=== PATIENT | female | born 1960 | race Caucasian/White ===

== ENCOUNTER → 2025-01-16 07:05 | Outpatient (CLI) | payer OTHER, SELFPAY ==
[2025-01-16 08:22] LABS: Add Manual Diff / Slide Review NO; Basophils Absolute Auto 0 /uL (0-100); Basophils Percent Auto 0.6 % (0-2); Eosinophils Absolute Auto 200 /uL (0-450); Eosinophils Percent Auto 4.1 % (2-4); Hematocrit 45.9 % (36-46); Hemoglobin 15.4 g/dL (12.0-16.0); Lymphocytes Absolute Auto 1800 /uL (1100-4500); Lymphocytes Percent Auto 32.9 % (25-40); Mean Corpuscular HGB Conc 33.5 % (30-36); Mean Corpuscular Hemoglobin 31.2 PG (26-34); Monocytes Absolute Auto 400 /uL (0-900); Monocytes Percent Auto 6.8 % (3-14); Neutrophils Absolute Auto 3100 /uL (1500-7000); Neutrophils Percent Auto 55.6 % (50-75); Platelet Count 289 X10^3/uL (150-400); Red Blood Cell Count 4.93 X10^6/uL (4.0-5.2); Red Cell Distribution Width 13.7 % (11.6-14.8); White Blood Cell Count 5.6 X10^3/uL (4.5-11.0)
[2025-01-16 08:43] LABS: Alanine Aminotransferase 25 IU/L (<35); Albumin 4.8 g/dL (3.5-5.0); Albumin Globulin Ratio 1.6 (1.0-2.8); Alkaline Phosphatase 72 U/L (38-126); Aspartate Aminotransferase 31 IU/L (14-36); BUN Creatinine Ratio 21.4 (6-22); Bilirubin Total 0.8 mg/dL (0.2-1.3); Blood Urea Nitrogen 15 mg/dL (7-17); Calcium 9.6 mg/dL (8.4-10.2); Carbon Dioxide 25 mmol/L (22-32); Chloride 106 mmol/L (98-107); Cholesterol 291 mg/dL (140-199); Estimated Glomerular Filt Rate > 60 mL/min (>60); Glucose 95 mg/dL (80-110); HEMOLYSIS < 15 (0-50); Potassium 4.8 mmol/L (3.4-5.1); Sodium 140 mmol/L (137-145); Total Protein 7.8 g/dL (6.3-8.2); Triglycerides 71 mg/dL (35-150)
[2025-01-16 08:54] LABS: HDL Cholesterol 134 mg/dL (40-60); LDL Cholesterol Calculated 143 mg/dL (<100)
== END ==
PROVIDERS: PCP Family Medicine; Referring Provider Family Medicine; Visit Provider Family Medicine
DX: Z00.00 Encounter for general adult medical examination without abnormal findings (principal); Z14.8 Genetic carrier of other disease; E78.89 Other lipoprotein metabolism disorders; Z01.812 Encounter for preprocedural laboratory examination; Z76.89 Persons encountering health services in other specified circumstances
CPT/HCPCS: 36415; 80053; 80061; 85025

== ENCOUNTER → 2025-01-16 17:06 | Outpatient (CLI) | payer OTHER, SELFPAY ==
--- NOTE | 2025-01-16 17:07 | DI.MG.S_ITS ---
BILATERAL DIGITAL SCREENING MAMMOGRAM 3D/2D WITH CAD: 01/16/2025 CLINICAL: Routine screening. Comparison is made to exams dated: 12/19/2023 mammogram, 11/09/2022 mammogram, and 10/28/2021 mammogram - [facility]. The breasts are heterogeneously dense, which may obscure small masses (category c / 51-75% glandular tissue). Current study was also evaluated with a Computer Aided Detection (CAD) system. There are benign calcifications in the left breast. No significant masses, calcifications, or other findings are seen in either breast. There has been no significant interval change. IMPRESSION: BENIGN There is no mammographic evidence of malignancy. A 1 year screening mammogram is recommended. Based on the Tyrer Cuzick model (a risk assessment model) the patient's lifetime risk is 10.3% and her 10 year risk is 4.7%. According to the ACR, ACS, and NCCN guidelines, an annual breast MRI exam along with mammogram is recommended if the patient's lifetime risk is 20% or greater. This exam was interpreted at Station ID: [id number]. NOTE: For mammograms, a report in lay terms will be sent to the patient. Approximately 15% of breast malignancies will not be visualized mammographically. In the management of a palpable breast mass, a negative mammogram must not discourage biopsy of a clinically suspicious lesion. Electronically Signed By: Lauryn pichardo/guille:01/17/2025 14:40:40 letter sent: Normal Exam ACR BI-RADS Category 2: Benign
== END ==
PROVIDERS: PCP Family Medicine; Referring Provider Family Medicine; Visit Provider Family Medicine
DX: Z12.31 Encounter for screening mammogram for malignant neoplasm of breast (principal); Z01.812 Encounter for preprocedural laboratory examination; R92.333 Mammographic heterogeneous density, bilateral breasts; Z14.8 Genetic carrier of other disease; E78.89 Other lipoprotein metabolism disorders; Z76.89 Persons encountering health services in other specified circumstances
CPT/HCPCS: 36415; 77063; 77067; 80053; 80061; 85025

== ENCOUNTER → 2025-03-18 12:03 | Outpatient (CLI) | payer OTHER, SELFPAY ==
--- NOTE | 2025-03-18 12:04 | DI.US.S_ITS ---
PROCEDURE: US PERIPH VENOUS LOW EXTREM LT INDICATIONS: Left lower extremity pain and swelling. R/O DVT TECHNIQUE: Real-time imaging, as well as color and pulse Doppler interrogation, were performed of the lower extremity deep veins from the inguinal ligament to the popliteal fossa, with documentation of the visualized calf veins. COMPARISON: None. FINDINGS: The common femoral, femoral, popliteal, and the visualized calf veins are normally compressible, and free of intraluminal thrombus. Color and pulse Doppler demonstrate normal phasic intraluminal flow. There is normal augmentation response to distal compression maneuver. IMPRESSION: No evidence of deep vein thrombosis involving the left lower extremity. Dictated by: Yolette Dominguez MD, PhD on 03/18/2025 at 12:41 Approved by: Yolette Dominguez MD, PhD on 03/18/2025 at 12:42
== END ==
PROVIDERS: PCP Family Medicine; Referring Provider Orthopaedic Surgery Orthopaedic Trauma; Visit Provider Orthopaedic Surgery Orthopaedic Trauma
DX: M79.662 Pain in left lower leg (principal)
CPT/HCPCS: 93971

== ENCOUNTER 2025-06-16 13:45 | Outpatient (RCR) | payer OTHER, SELFPAY ==
--- NOTE | 2025-01-06 17:50 | PT.OIE ---
Current Diagnoses Unilateral primary osteoarthritis, left hip (01/06/25) Visit Care Team Role Provider Type Georgina Vincent DO Primary Care Provider Physician Referring Provider Specialty: Family Practice Address: [address] [place] [address], [address], [place], [address] Email: [email or web address] Geovanni Daley MD Attending Provider Non-Staff Specialty: Medical Address: [address] [place] [address], [id number] Email: Physical Therapy Initial Evaluation PT-OP-A Visit Information Start: 01/01/25 17:38 Freq: Status: Active Protocol: Document 01/06/25 09:05 [facility] (Rec: 01/06/25 12:35 [facility] [id number]) Out-Patient Physical Therapy Visit Information Visit Information Visit Type Initial Evaluation Visit Start Time 09:05 Visit Stop Time 09:50 Visit Number 1 Number of STRATEGIC COMMUNICATIONS MANAGER Visits 0 PT-OP-B Current Condition Start: 01/01/25 17:38 Freq: Status: Active Protocol: Document 01/06/25 09:05 [facility] (Rec: 01/06/25 12:35 [facility] [id number]) Current Condition History of Current Condition Current Complaints L ant hip pain History of Current Condition Pt has surgery for L FERNANDA ant approach 01/29. Here for pre- surgery PT. 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 She had to carry a lot of 50lb suitcases up/dwon stairs and it started bothering her and tried PT and it made it worse, so now movign on to surgery. Walks [place] park daily and does a 2nd walk sometimes later. Has a lot of stairs in house. 15 -20 stairs to enter w/rail then all the living is on that level. Walk in shower with suction grab bars. Toilet is standard height. Treatment Goals Patient/Caregiver Goals prep for sx adn return to activity PT-OP-C Subjective Start: 01/01/25 17:38 Freq: Status: Active Protocol: Document 01/06/25 09:05 [facility] (Rec: 01/06/25 17:41 [facility] [id number]) Patient Questionnaires Lower Extremity Functional Scale LEFS Score 43/80 PT-OP-G Mobility & Gait Start: 01/01/25 17:38 Freq: Status: Active Protocol: Document 01/06/25 09:05 [facility] (Rec: 01/06/25 17:42 [facility] [id number]) OP Gait Assessment Comments Gait Comments dec stance time LLE, dec push off and inability to get hip ext PT-OP-Q Treatments Start: 01/01/25 17:38 Freq: Status: Active Protocol: Document 01/06/25 09:05 [facility] (Rec: 01/06/25 12:35 [facility] [id number]) Gait Training Gait Activity stairs Comments step up.down w/cane and rail and crutch and rail ea up/down training stairs cane Comments cues for set up and step through pattern walker Comments cues for set up and step to and step through pattern crutches Comments cues for set up and step to and step through pattern Self-Care/Home Management Treatment Education Other Education edu to get BSC or toilet riser to inc height of toilet, FWW and SPC, edu sitting initially for shower, edu on frequent movement (every hour small bout) Activities Self-Care/Home Management Activities In/out of bed w/use of cane to help LLE; use of sock aide PT-OP-T Assessment and Plan Start: 01/01/25 17:38 Freq: Status: Active Protocol: Document 01/06/25 09:05 [facility] (Rec: 01/06/25 12:35 [facility] [id number]) Physical Therapy Assessment Rehab Potential Rehabilitation Potential Good Evaluation Complexity Number of Personal Factors/Comorbidities 3 or More Number of Body Systems Impaired 4 or More Clinical Presentation at Evaluation Evolving Impairments Impairments Activity Tolerance,Balance, Functional Activities, Functional Mobility,Gait,Pain, Posture,ROM,Soft Tissue Mobility,Strength,Transfers Goals 1 Short Term Goal (STG) Pt will be indep w/HEP prior to FERNANDA for recovery STG Duration 3/1 Superintendent Job Goal (LTG) Pt will be indep w/safety w/ use of FWW, crutches, SPC in prep for surgery. LTG Duration 4/1 Assessment Summary Assessment Pt presents for pre-op rehab and prep for after surgery. She has impaired gait pattern and significant weakness/dec flexibility noted w/her gait pattern and functional movements. She is very receptive to information in preperation for surgery and did well with edu of AD use and other edu. She would benefit from skilled PT to work on safety, strength and mobility in prep for FERNANDA ant approach. Physical Therapy Plan Frequency and Duration Frequency of Treatment 2x/Week Duration of treatment (weeks) 8 Plan of Care Start Date 01/06/25 Plan of Care End Date 03/03/25 Therapeutic Interventions Therapeutic Interventions Balance Training,Gait Training ,Home Exercise Program,Joint Mobilizations,Manual Therapy, Neuromuscular Re-education, Patient/Caregiver Education, Self-Care/Home Management,Soft Tissue Mobilization,Taping, Therapeutic Activities, Therapeutic Exercises Modalities Cold Pack/Ice Massage,Electric Stimulation,Hot Packs Next Visit Focus/Plan Next Note Type Treatment Note Next Visit Plan review use of AD, help pt set up self AD, try gentle HEP; give post op HEP, use of reach for dressing, discuss icing and elevation
--- NOTE | 2025-01-06 17:50 | PT.OPPOC ---
Physical, Occupational & Speech Therapy At [facility] Current Diagnoses Unilateral primary osteoarthritis, left hip (01/06/25) Visit Care Team Role Provider Type Georgina Vincent DO Primary Care Provider Physician Referring Provider Specialty: Family Practice Address: [address] [place] [address], [facility] [address], [place], [address] Email: [email or web address] Geovanni Daley MD Attending Provider Non-Staff Specialty: Medical Address: [address] [place] [address], [id number] Email: Plan Of Care PT-OP-B Current Condition Start: 01/01/25 17:38 Freq: Status: Active Protocol: Document 01/06/25 09:05 [facility] (Rec: 01/06/25 12:35 [facility] [id number]) Current Condition History of Current Condition Current Complaints L ant hip pain History of Current Condition Pt has surgery for L FERNANDA ant approach 01/29. Here for pre- surgery PT. 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 She had to carry a lot of 50lb suitcases up/dwon stairs and it started bothering her and tried PT and it made it worse, so now movign on to surgery. Walks [place] park daily and does a 2nd walk sometimes later. Has a lot of stairs in house. 15 -20 stairs to enter w/rail then all the living is on that level. Walk in shower with suction grab bars. Toilet is standard height. Treatment Goals Patient/Caregiver Goals prep for sx adn return to activity PT-OP-T Assessment and Plan Start: 01/01/25 17:38 Freq: Status: Active Protocol: Document 01/06/25 09:05 [facility] (Rec: 01/06/25 12:35 [facility] [id number]) Physical Therapy Assessment Rehab Potential Rehabilitation Potential Good Evaluation Complexity Number of Personal Factors/Comorbidities 3 or More Number of Body Systems Impaired 4 or More Clinical Presentation at Evaluation Evolving Impairments Impairments Activity Tolerance,Balance, Functional Activities, Functional Mobility,Gait,Pain, Posture,ROM,Soft Tissue Mobility,Strength,Transfers Goals 1 Short Term Goal (STG) Pt will be indep w/HEP prior to FERNANDA for recovery STG Duration 3/ Dietary Aide Teacher Goal (LTG) Pt will be indep w/safety w/ use of FWW, crutches, SPC in prep for surgery. LTG Duration 02/25 Assessment Summary Assessment Pt presents for pre-op rehab and prep for after surgery. She has impaired gait pattern and significant weakness/dec flexibility noted w/her gait pattern and functional movements. She is very receptive to information in preperation for surgery and did well with edu of AD use and other edu. She would benefit from skilled PT to work on safety, strength and mobility in prep for FERNANDA ant approach. Physical Therapy Plan Frequency and Duration Frequency of Treatment 2x/Week Duration of treatment (weeks) 8 Plan of Care Start Date 01/06/25 Plan of Care End Date 03/03/25 Therapeutic Interventions Therapeutic Interventions Balance Training,Gait Training ,Home Exercise Program,Joint Mobilizations,Manual Therapy, Neuromuscular Re-education, Patient/Caregiver Education, Self-Care/Home Management,Soft Tissue Mobilization,Taping, Therapeutic Activities, Therapeutic Exercises Modalities Cold Pack/Ice Massage,Electric Stimulation,Hot Packs Next Visit Focus/Plan Next Note Type Treatment Note Next Visit Plan review use of AD, help pt set up self AD, try gentle HEP; give post op HEP, use of reach for dressing, discuss icing and elevation Plan of Care Dates Plan of Care Start Date 01/06/25 Plan of Care End Date 03/03/25 Electronically Signed by: Tonia Trevizo, PT 01/06/25 [id number] If you are in agreement with this Plan of Care, please return a signed and dated copy. I have reviewed this Plan of Care and certify that the skilled therapy services above are required to meet the patient?s needs. Physician Signature Date Printed Name and Credentials Clinical Instructor Signature Printed Name and Credentials
--- NOTE | 2025-01-09 18:17 | PT.OTN ---
Current Diagnoses Unilateral primary osteoarthritis, left hip (01/09/25) Physical Therapy Treatment Note PT-OP-A Visit Information Start: 01/01/25 17:38 Freq: Status: Active Protocol: Document 01/09/25 16:12 [facility] (Rec: 01/09/25 18:17 [facility] [id number]) Out-Patient Physical Therapy Visit Information Visit Information Visit Type Treatment Note Visit Start Time 16:15 Visit Stop Time 17:00 Visit Number 2 Number of WAITER/WAITRESS COUNTER Visits 0 Precautions Precautions after surgery avoid hyperext w /ER PT-OP-B Current Condition Start: 01/01/25 17:38 Freq: Status: Active Protocol: Document 01/06/25 09:05 [facility] (Rec: 01/06/25 12:35 [facility] [id number]) Current Condition History of Current Condition Current Complaints L ant hip pain History of Current Condition Pt has surgery for L FERNANDA ant approach 01/29. Here for pre- surgery PT. 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 She had to carry a lot of 50lb suitcases up/dwon stairs and it started bothering her and tried PT and it made it worse, so now movign on to surgery. Walks [place] park daily and does a 2nd walk sometimes later. Has a lot of stairs in house. 15 -20 stairs to enter w/rail then all the living is on that level. Walk in shower with suction grab bars. Toilet is standard height. Treatment Goals Patient/Caregiver Goals prep for sx adn return to activity PT-OP-C Subjective Start: 01/01/25 17:38 Freq: Status: Active Protocol: Document 01/09/25 16:12 [facility] (Rec: 01/09/25 18:17 [facility] [id number]) OP-PT Subjective Patient Comments Patient Comments Pt reports she got her walker and cane set up and got a toilet riser and shower chair PT-OP-G Mobility & Gait Start: 01/01/25 17:38 Freq: Status: Active Protocol: Document 01/06/25 09:05 [facility] (Rec: 01/06/25 17:42 [facility] [id number]) OP Gait Assessment Comments Gait Comments dec stance time LLE, dec push off and inability to get hip ext PT-OP-Q Treatments Start: 01/01/25 17:38 Freq: Status: Active Protocol: Document 01/09/25 16:12 [facility] (Rec: 01/09/25 18:17 [facility] [id number]) Therapeutic Exercises Supine Exercises bridge Side bilateral Reps/Minutes 6 Comments segmental lift and comofrtable range cues *prior to surgery only pelvic tilt Reps/Minutes 5 stretch Supine Exercise Name R KTC w/LLE ext for hip flexor stretch Reps/Minutes 30 sec Comments * for before surgery heel slide Side left Reps/Minutes 8 Comments cues comfortable range quad set Side left Reps/Minutes 5 sec x8 glute set Side bilateral Reps/Minutes 5secx6 Sitting Exercises LAQ Side left Reps/Minutes 5sec x5 Standing Exercises stretches Standing Exercise Name 1. SB QL stretch 2. hip flexor 3. fwd lean at counter BUEs Side left Reps/Minutes 30 sec ea Comments *for prior to sx* Therapeutic Activity Therapeutic Activity pivoting Comments edu and practice small steps vs lg pivots sit to stand Comments edu re: safe to WB and sit to stand w/both LEs unless painful then practiced w/LLE out slightly dressing Comments edu on how to do LE dressing after FERNANDA (1st FERNANDA side then R and opp to undress)-edu on traffic rate analyst use Self-Care/Home Management Treatment Education Other Education 15 min: post op packet hand out education; edu for trying to do step thru w/walker unless painful then can do step to. edu to walk w/walking stick in opp hand now to help offload pain. edu not to over stretch when doing stretches now. review of precautions no hyperext w/ER PT-OP-T Assessment and Plan Start: 01/01/25 17:38 Freq: Status: Active Protocol: Document 01/09/25 16:12 [facility] (Rec: 01/09/25 18:17 [facility] [id number]) Physical Therapy Assessment Goals 1 Short Term Goal (STG) Pt will be indep w/HEP prior to FERNANDA for recovery STG Duration 3/1 Usp Goal (LTG) Pt will be indep w/safety w/ use of FWW, crutches, SPC in prep for surgery. LTG Duration 4/1 Assessment Summary Assessment Pt responded well to PT education and work on mechanics of gait in prep for L FERNANDA ant approach. Pt questions were answered and pt given handouts of information for post surgery. Physical Therapy Plan Frequency and Duration Frequency of Treatment 2x/Week Duration of treatment (weeks) 8 Plan of Care Start Date 01/06/25 Plan of Care End Date 03/03/25 Next Visit Focus/Plan Next Note Type Re-Evaluation Next Visit Plan assessment after FERNANDA russ Romano
--- NOTE | 2025-02-26 11:14 | PT.OTRE ---
Current Diagnoses Unilateral primary osteoarthritis, left hip (02/26/25) Visit Care Team Role Provider Type Georgina Vincent DO Primary Care Provider Physician Referring Provider Specialty: Family Practice Address: [address] [place] [address], [address], [place], [address] Email: [email or web address] Geovanni Daley MD Attending Provider Non-Staff Specialty: Medical Address: [address] [place] [address], [address] Email: Physical Therapy Re-Evaluation PT-OP-A Visit Information Start: 01/01/25 17:38 Freq: Status: Active Protocol: Document 02/26/25 09:42 [facility] (Rec: 02/26/25 10:38 [facility] [id number]) Out-Patient Physical Therapy Visit Information Visit Information Visit Type Re-Evaluation Visit Start Time 09:43 Visit Stop Time 10:35 Visit Number 3 Precautions Precautions after surgery avoid hyperext w /ER PT-OP-B Current Condition Start: 01/01/25 17:38 Freq: Status: Active Protocol: Document 02/26/25 09:42 [facility] (Rec: 02/26/25 10:38 [facility] [id number]) Current Condition History of Current Condition Current Complaints L ant hip pain History of Current Condition Pt has surgery for L FERNANDA ant approach 01/29. Here for pre- surgery PT. 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 She had to carry a lot of 50lb suitcases up/dwon stairs and it started bothering her and tried PT and it made it worse, so now movign on to surgery. Walks [place] park daily and does a 2nd walk sometimes later. Has a lot of stairs in house. 15 -20 stairs to enter w/rail then all the living is on that level. Walk in shower with suction grab bars. Toilet is standard height. PT-OP-C Subjective Start: 01/01/25 17:38 Freq: Status: Active Protocol: Document 02/26/25 09:42 [facility] (Rec: 02/26/25 10:38 [facility] [id number]) OP-PT Subjective Patient Comments Patient Comments Left anterior FERNANDA 01/29/25. No complications. Post-op 2 weeks looked good, no problem, though was having deep left hip pain initially, now mild. Now walking in house with no device, uses cane in community mostly as protection . Has walked up to 2 miles on flat level ground. Doing stairs step-to pattern though feels liek could do alternating pattern. PT-OP-G Mobility & Gait Start: 01/01/25 17:38 Freq: Status: Active Protocol: Document 02/26/25 09:42 [facility] (Rec: 02/26/25 10:54 [facility] [id number]) OP Mobility Evaluation Transfers Sit to Stand cues for hip hinge, gluteal activation OP Gait Assessment Gait Gait Assistance Required: Independent Able to Maintain Weight Bearing Status Yes During Gait Assistive Devices Assistive Device None,Straight Cane Orthotic/Prosthetic Devices or Brace: No Comments Gait Comments lack of arm swing right and hip rotation left Stair Climbing Evaluation Evaluation Level of Assist On Stairs Standby Assistance Devices Stair Climbing Assistive Devices Right Railing Technique/Endurance Stair Climbing Direction Ascend and Descend Stair Climbing Technique Step Over Step Comments Stair Climbing Comments 5 4 stairs x 2 alternating 4 6 stairs x 2 alternating cues for gluteal activation wesley PT-OP-Q Treatments Start: 01/01/25 17:38 Freq: Status: Active Protocol: Document 02/26/25 09:42 [facility] (Rec: 02/26/25 10:38 [facility] [id number]) Cardio Equipment Recumbent Stepper (Sci-Fit) Duration (Minutes) 5 Resistance 1 Seat Position 8 Gym Equipment Shuttle Recovery Unilateral Squats Resistance 25 Reps/Time 10x Bilateral Squats Resistance 50 Reps/Time 10x Therapeutic Exercises Supine Exercises supine clam Equipment Used L1 TB Reps/Minutes 10x5 ball squeeze Reps/Minutes 10x5 glute set Side bilateral Reps/Minutes 5secx6 Comments adding start lift (mini bridge ) Sitting Exercises sit stand Reps/Minutes 10x Comments chair Self-Care/Home Management Treatment Education Other Education gentle self massage buttock with tennis or raquetball PT-OP-R Modalities Start: 01/01/25 17:38 Freq: Status: Active Protocol: Document 02/26/25 09:42 [facility] (Rec: 02/26/25 10:50 [facility] [id number]) Hot Pack/Cold Pack Treatment Cold Pack Location left hip Patient Position Hooklying Patient Tolerance Good PT-OP-T Assessment and Plan Start: 01/01/25 17:38 Freq: Status: Active Protocol: Document 02/26/25 09:42 [facility] (Rec: 02/26/25 10:38 [facility] [id number]) Physical Therapy Assessment Impairments Impairments Activity Tolerance,Balance, Functional Activities, Functional Mobility,Gait,Pain, Posture,ROM,Soft Tissue Mobility,Strength,Transfers Goals Three Impairment decreased scar mobility Short Term Goal (STG) Initiate scar massage when approved by physician STG Duration 03/27/25 [facility] Goal (LTG) Improve surgical scar mobility to WNL for improved left hip function LTG Duration 04/27/25 Two Impairment left hip pain and stiffness with flexion, hip wknss Short Term Goal (STG) Patient will be instrsucted in progressive, individualized HEP for purposes of left hip ROM and strengthening STG Duration 03/27/25 [facility] Goal (LTG) Patient will be independnet and compliant with HEP and demonstrate hip flexion ROM WNL without pain and improve strength left hip to at least 4+/5 all motions LTG Duration 04/27/25 One Impairment Gait dysfunction; step-to pattern, no incline Short Term Goal (STG) Patient will be able to ascend and descend her stairs at home (reports thinks 8 height ) without difficulty or increase in pain. STG Duration 03/27/25 Welt Treater Goal (LTG) Patient will be able to resume taking usual walks including incline without an increase in pain LTG Duration 04/27/25 1 Short Term Goal (STG) Pt will be indep w/HEP prior to FERNANDA for recovery STG Duration goal met Welt Treater Goal (LTG) Pt will be indep w/safety w/ use of FWW, crutches, SPC in prep for surgery. LTG Duration goal met Assessment Summary Assessment Patient presents to PT s/p left anterior FERNANDA 01/29/25. Scar healing well, mostly closed. No signs or symptoms of infection. Patient compliant to HEP instructed prior to surgery and at hospital after surgery. Biggest concern is being able to ambulate up and down stairs (currently still doing step- to pattern) and stiffness and pain lifting left LE up, reports feels stiff. Has progressed gait to ambulating at home without device and using cane in community more for protection than support. Patient is highly motivated and anticipate her to progress well with PT. POC was discussed and she was in agreement, hoping for lower end number of PT visits due to $50 copay. Physical Therapy Plan Frequency and Duration Frequency of Treatment 1x/Week Duration of treatment (weeks) 8 Plan of Care Start Date 02/26/25 Plan of Care End Date 04/28/25 Therapeutic Interventions Therapeutic Interventions Balance Training,Gait Training ,Home Exercise Program,Joint Mobilizations,Manual Therapy, Neuromuscular Re-education, Patient/Caregiver Education, Self-Care/Home Management,Soft Tissue Mobilization,Taping, Therapeutic Activities, Therapeutic Exercises Modalities Cold Pack/Ice Massage,Electric Stimulation,Hot Packs Next Visit Focus/Plan Next Note Type Treatment Note Next Visit Plan Progress left hip strengthening, ROM, gait training,
--- NOTE | 2025-02-26 11:15 | PT.OPPOC ---
Physical, Occupational & Speech Therapy At [facility] Current Diagnoses Unilateral primary osteoarthritis, left hip (02/26/25) Visit Care Team Role Provider Type Georgina Vincent DO Primary Care Provider Physician Referring Provider Specialty: Family Practice Address: [address] [place] [address], [facility] [address], [address] Email: [email or web address] Geovanni Daley MD Attending Provider Non-Staff Specialty: Medical Address: [address] [place] [address], [id number] Email: Plan Of Care PT-OP-B Current Condition Start: 01/01/25 17:38 Freq: Status: Active Protocol: Document 02/26/25 09:42 SAK (Rec: 02/26/25 10:38 SAK [id number]) Current Condition History of Current Condition Current Complaints L ant hip pain History of Current Condition Pt has surgery for L FERNANDA ant approach 01/29. Here for pre- surgery PT. 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 She had to carry a lot of 50lb suitcases up/dwon stairs and it started bothering her and tried PT and it made it worse, so now movign on to surgery. Walks [place] park daily and does a 2nd walk sometimes later. Has a lot of stairs in house. 15 -20 stairs to enter w/rail then all the living is on that level. Walk in shower with suction grab bars. Toilet is standard height. PT-OP-T Assessment and Plan Start: 01/01/25 17:38 Freq: Status: Active Protocol: Document 02/26/25 09:42 SAK (Rec: 02/26/25 10:38 SAK [id number]) Physical Therapy Assessment Impairments Impairments Activity Tolerance,Balance, Functional Activities, Functional Mobility,Gait,Pain, Posture,ROM,Soft Tissue Mobility,Strength,Transfers Goals Three Impairment decreased scar mobility Short Term Goal (STG) Initiate scar massage when approved by physician STG Duration 03/27/25 Litigation Legal Assistant Goal (LTG) Improve surgical scar mobility to WNL for improved left hip function LTG Duration 04/27/25 Two Impairment left hip pain and stiffness with flexion, hip wknss Short Term Goal (STG) Patient will be instrsucted in progressive, individualized HEP for purposes of left hip ROM and strengthening STG Duration 03/27/25 Litigation Legal Assistant Goal (LTG) Patient will be independnet and compliant with HEP and demonstrate hip flexion ROM WNL without pain and improve strength left hip to at least 4+/5 all motions LTG Duration 04/27/25 One Impairment Gait dysfunction; step-to pattern, no incline Short Term Goal (STG) Patient will be able to ascend and descend her stairs at home (reports thinks 8 height ) without difficulty or increase in pain. STG Duration 03/27/25 Assisted Goal (LTG) Patient will be able to resume taking usual walks including incline without an increase in pain LTG Duration 04/27/25 1 Short Term Goal (STG) Pt will be indep w/HEP prior to FERNANDA for recovery STG Duration goal met Assisted Goal (LTG) Pt will be indep w/safety w/ use of FWW, crutches, SPC in prep for surgery. LTG Duration goal met Assessment Summary Assessment Patient presents to PT s/p left anterior FERNANDA 01/29/25. Scar healing well, mostly closed. No signs or symptoms of infection. Patient compliant to HEP instructed prior to surgery and at hospital after surgery. Biggest concern is being able to ambulate up and down stairs (currently still doing step- to pattern) and stiffness and pain lifting left LE up, reports feels stiff. Has progressed gait to ambulating at home without device and using cane in community more for protection than support. Patient is highly motivated and anticipate her to progress well with PT. POC was discussed and she was in agreement, hoping for lower end number of PT visits due to $50 copay. Physical Therapy Plan Frequency and Duration Frequency of Treatment 1x/Week Duration of treatment (weeks) 8 Plan of Care Start Date 02/26/25 Plan of Care End Date 04/28/25 Therapeutic Interventions Therapeutic Interventions Balance Training,Gait Training ,Home Exercise Program,Joint Mobilizations,Manual Therapy, Neuromuscular Re-education, Patient/Caregiver Education, Self-Care/Home Management,Soft Tissue Mobilization,Taping, Therapeutic Activities, Therapeutic Exercises Modalities Cold Pack/Ice Massage,Electric Stimulation,Hot Packs Next Visit Focus/Plan Next Note Type Treatment Note Next Visit Plan Progress left hip strengthening, ROM, gait training, Plan of Care Dates Plan of Care Start Date 02/26/25 Plan of Care End Date 04/28/25 Electronically Signed by: Yadira Linn, PT 02/26/25 3504 If you are in agreement with this Plan of Care, please return a signed and dated copy. I have reviewed this Plan of Care and certify that the skilled therapy services above are required to meet the patient?s needs. Physician Signature Date Printed Name and Credentials Clinical Instructor Signature Printed Name and Credentials
--- NOTE | 2025-03-03 12:34 | PT.OTN ---
Current Diagnoses Unilateral primary osteoarthritis, left hip (03/03/25) Physical Therapy Treatment Note PT-OP-A Visit Information Start: 01/01/25 17:38 Freq: Status: Active Protocol: Document 03/03/25 08:20 [facility] (Rec: 03/03/25 12:34 [facility] [id number]) Out-Patient Physical Therapy Visit Information Visit Information Visit Type Treatment Note Visit Start Time 09:08 Visit Stop Time 09:48 Visit Number 4 Number of DRAMA PROFESSOR Visits 0 PT-OP-B Current Condition Start: 01/01/25 17:38 Freq: Status: Active Protocol: Document 02/26/25 09:42 SAK (Rec: 02/26/25 10:38 SAK [id number]) Current Condition History of Current Condition Current Complaints L ant hip pain History of Current Condition Pt has surgery for L FERNANDA ant approach 01/29. Here for pre- surgery PT. 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 She had to carry a lot of 50lb suitcases up/dwon stairs and it started bothering her and tried PT and it made it worse, so now movign on to surgery. Walks [place] park daily and does a 2nd walk sometimes later. Has a lot of stairs in house. 15 -20 stairs to enter w/rail then all the living is on that level. Walk in shower with suction grab bars. Toilet is standard height. PT-OP-C Subjective Start: 01/01/25 17:38 Freq: Status: Active Protocol: Document 03/03/25 08:20 [facility] (Rec: 03/03/25 12:34 [facility] [id number]) OP-PT Subjective Patient Comments Patient Comments pt reports doing well with exercises. not allowed to touch scar til follow up w/ doctor next week per their office. She has most issue w/ lifting LLE PT-OP-G Mobility & Gait Start: 01/01/25 17:38 Freq: Status: Active Protocol: Document 02/26/25 09:42 SAK (Rec: 02/26/25 10:54 SAK [id number]) OP Mobility Evaluation Transfers Sit to Stand cues for hip hinge, gluteal activation OP Gait Assessment Gait Gait Assistance Required: Independent Able to Maintain Weight Bearing Status Yes During Gait Assistive Devices Assistive Device None,Straight Cane Orthotic/Prosthetic Devices or Brace: No Comments Gait Comments lack of arm swing right and hip rotation left Stair Climbing Evaluation Evaluation Level of Assist On Stairs Standby Assistance Devices Stair Climbing Assistive Devices Right Railing Technique/Endurance Stair Climbing Direction Ascend and Descend Stair Climbing Technique Step Over Step Comments Stair Climbing Comments 5 4 stairs x 2 alternating 4 6 stairs x 2 alternating cues for gluteal activation wesley PT-OP-Q Treatments Start: 01/01/25 17:38 Freq: Status: Active Protocol: Document 03/03/25 08:20 [facility] (Rec: 03/03/25 12:34 [facility] [id number]) Therapeutic Exercises Supine Exercises supine clam Equipment Used L2 TB Reps/Minutes 10x5 stretch Supine Exercise Name 1.R KTC w/LLE ext for hip flexor stretch 2. L piriformis knee to opp chest Equipment Used towel for 2 Reps/Minutes 60 sec ea Comments BLEs on bed Sitting Exercises sit stand Reps/Minutes 10x Comments chair tap Standing Exercises heel raises Standing Exercise Name on step Side bilateral Reps/Minutes 15 Comments cues control march Side bilateral Equipment Used wall prn Reps/Minutes 10 Comments cues posture and control stretches Standing Exercise Name on stairs Side bilateral Reps/Minutes 60sec Manual Therapy Treatment Consent Patient gave verbal consent for manual Yes treatment Soft Tissue Mobilization hip flexor Body Location L proximal psoas and iliacus Mobilization Type Sustained Pressure Intensity/Depth Moderate Body Position Hooklying Comments w/gentle AAROM hip flex and gentle rot Joint Mobilizations innominate Joint L add c/r s/l w/pelvic dep, L flex c/r supine hip Grade II Body Position Hooklying Comments L inf glide PT-OP-R Modalities Start: 01/01/25 17:38 Freq: Status: Active Protocol: Document 02/26/25 09:42 SAK (Rec: 02/26/25 10:50 SAK [id number]) Hot Pack/Cold Pack Treatment Cold Pack Location left hip Patient Position Hooklying Patient Tolerance Good PT-OP-T Assessment and Plan Start: 01/01/25 17:38 Freq: Status: Active Protocol: Document 03/03/25 08:20 [facility] (Rec: 03/03/25 12:34 [facility] [id number]) Physical Therapy Assessment Goals Three Impairment decreased scar mobility Short Term Goal (STG) Initiate scar massage when approved by physician STG Duration 5/1/25 Usp Goal (LTG) Improve surgical scar mobility to WNL for improved left hip function LTG Duration 04/27/25 Two Impairment left hip pain and stiffness with flexion, hip wknss Short Term Goal (STG) Patient will be instrsucted in progressive, individualized HEP for purposes of left hip ROM and strengthening STG Duration 03/27/25 Usp Goal (LTG) Patient will be independnet and compliant with HEP and demonstrate hip flexion ROM WNL without pain and improve strength left hip to at least 4+/5 all motions LTG Duration 04/27/25 One Impairment Gait dysfunction; step-to pattern, no incline Short Term Goal (STG) Patient will be able to ascend and descend her stairs at home (reports thinks 8 height ) without difficulty or increase in pain. STG Duration 03/27/25 Polisher Sand Goal (LTG) Patient will be able to resume taking usual walks including incline without an increase in pain LTG Duration 04/27/25 Assessment Summary Assessment Pt did well but required cues w/her exercises for appropriate form. She cont to struggle w/ability to get full hip flex ROM and did well w/ manual. improved gait pattern w/manual work. Tightness significant at hip flexors Physical Therapy Plan Frequency and Duration Frequency of Treatment 1x/Week Duration of treatment (weeks) 8 Plan of Care Start Date 02/26/25 Plan of Care End Date 04/28/25 Therapeutic Interventions Therapeutic Interventions Balance Training,Gait Training ,Home Exercise Program,Joint Mobilizations,Manual Therapy, Neuromuscular Re-education, Patient/Caregiver Education, Self-Care/Home Management,Soft Tissue Mobilization,Taping, Therapeutic Activities, Therapeutic Exercises Modalities Cold Pack/Ice Massage,Electric Stimulation,Hot Packs Next Visit Focus/Plan Next Note Type Treatment Note Next Visit Plan review and advance strengthening; try bridge to neutral, core stability, pelvic alignment
--- NOTE | 2025-03-06 09:46 | PT.OTN ---
Current Diagnoses Unilateral primary osteoarthritis, left hip (03/06/25) Physical Therapy Treatment Note PT-OP-A Visit Information Start: 01/01/25 17:38 Freq: Status: Active Protocol: Document 03/06/25 09:02 [facility] (Rec: 03/06/25 09:46 [facility] [id number]) Out-Patient Physical Therapy Visit Information Visit Information Visit Type Treatment Note Visit Start Time 09:03 Visit Stop Time 09:43 Visit Number 5 Number of INTERIOR DESIGN CONSULTANT Visits 0 PT-OP-B Current Condition Start: 01/01/25 17:38 Freq: Status: Active Protocol: Document 02/26/25 09:42 SAK (Rec: 02/26/25 10:38 SAK [id number]) Current Condition History of Current Condition Current Complaints L ant hip pain History of Current Condition Pt has surgery for L FERNANDA ant approach 01/29. Here for pre- surgery PT. 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 She had to carry a lot of 50lb suitcases up/dwon stairs and it started bothering her and tried PT and it made it worse, so now movign on to surgery. Walks [place] park daily and does a 2nd walk sometimes later. Has a lot of stairs in house. 15 -20 stairs to enter w/rail then all the living is on that level. Walk in shower with suction grab bars. Toilet is standard height. PT-OP-C Subjective Start: 01/01/25 17:38 Freq: Status: Active Protocol: Document 03/06/25 09:02 [facility] (Rec: 03/06/25 09:46 [facility] [id number]) OP-PT Subjective Patient Comments Patient Comments Pt reports she walked 1 hour yesterday and was sore after but just iced and was ok PT-OP-G Mobility & Gait Start: 01/01/25 17:38 Freq: Status: Active Protocol: Document 02/26/25 09:42 SAK (Rec: 02/26/25 10:54 SAK [id number]) OP Mobility Evaluation Transfers Sit to Stand cues for hip hinge, gluteal activation OP Gait Assessment Gait Gait Assistance Required: Independent Able to Maintain Weight Bearing Status Yes During Gait Assistive Devices Assistive Device None,Straight Cane Orthotic/Prosthetic Devices or Brace: No Comments Gait Comments lack of arm swing right and hip rotation left Stair Climbing Evaluation Evaluation Level of Assist On Stairs Standby Assistance Devices Stair Climbing Assistive Devices Right Railing Technique/Endurance Stair Climbing Direction Ascend and Descend Stair Climbing Technique Step Over Step Comments Stair Climbing Comments 5 4 stairs x 2 alternating 4 6 stairs x 2 alternating cues for gluteal activation wesley PT-OP-Q Treatments Start: 01/01/25 17:38 Freq: Status: Active Protocol: Document 03/06/25 09:02 [facility] (Rec: 03/06/25 09:46 [facility] [id number]) Therapeutic Exercises Supine Exercises bridge Supine Exercise Name partial range-cues to not go further than gentle stretch Side bilateral Reps/Minutes [id number] facilitation for 2 reps Comments segmental lift and comofrtable range cues stretch Supine Exercise Name 1.R KTC w/LLE ext for hip flexor stretch 2. L piriformis knee 3. SKTC Equipment Used towel for #2&3 Reps/Minutes 30 sec ea Comments BLEs on bed Sitting Exercises sit stand Sitting Exercise Name cues glutes Equipment Used L2 band Reps/Minutes 12x Comments chair tap Standing Exercises march Side bilateral Equipment Used wall prn Reps/Minutes 10 Comments cues posture and control Manual Therapy Treatment Consent Patient gave verbal consent for manual Yes treatment Soft Tissue Mobilization glutes Body Location L glute med and piriformis Mobilization Type Rolling,Sustained Pressure Intensity/Depth Moderate Body Position Sidelying Comments w/sciatic n glide Joint Mobilizations pubic bone Joint L inf c/r innominate Comments L add c/r s/l PT-OP-R Modalities Start: 01/01/25 17:38 Freq: Status: Active Protocol: Document 02/26/25 09:42 SAK (Rec: 02/26/25 10:50 SAK [id number]) Hot Pack/Cold Pack Treatment Cold Pack Location left hip Patient Position Hooklying Patient Tolerance Good PT-OP-T Assessment and Plan Start: 01/01/25 17:38 Freq: Status: Active Protocol: Document 03/06/25 09:02 [facility] (Rec: 03/06/25 09:46 [facility] [id number]) Physical Therapy Assessment Goals Three Impairment decreased scar mobility Short Term Goal (STG) Initiate scar massage when approved by physician STG Duration 03/27/25 Medical Esthetician Goal (LTG) Improve surgical scar mobility to WNL for improved left hip function LTG Duration 04/27/25 Two Impairment left hip pain and stiffness with flexion, hip wknss Short Term Goal (STG) Patient will be instrsucted in progressive, individualized HEP for purposes of left hip ROM and strengthening STG Duration 03/27/25 Mcc Goal (LTG) Patient will be independnet and compliant with HEP and demonstrate hip flexion ROM WNL without pain and improve strength left hip to at least 4+/5 all motions LTG Duration 04/27/25 One Impairment Gait dysfunction; step-to pattern, no incline Short Term Goal (STG) Patient will be able to ascend and descend her stairs at home (reports thinks 8 height ) without difficulty or increase in pain. STG Duration 03/27/25 Mcc Goal (LTG) Patient will be able to resume taking usual walks including incline without an increase in pain LTG Duration 04/27/25 Assessment Summary Assessment Pt calf pain was elicited w/ buttocks STM so likely where calf pain from d/t no swelling in lower leg or redness. She is encouraged to cont stretches and exercises gently w/o inc pain. Physical Therapy Plan Frequency and Duration Frequency of Treatment 1x/Week Duration of treatment (weeks) 8 Plan of Care Start Date 02/26/25 Plan of Care End Date 04/28/25 Next Visit Focus/Plan Next Note Type Treatment Note Next Visit Plan work on pelvic alignment and cues for core and hip mobility
--- NOTE | 2025-03-10 16:10 | PT.OTN ---
Current Diagnoses Unilateral primary osteoarthritis, left hip (03/10/25) Physical Therapy Treatment Note PT-OP-A Visit Information Start: 01/01/25 17:38 Freq: Status: Active Protocol: Document 03/10/25 15:21 [facility] (Rec: 03/10/25 16:10 [facility] [id number]) Out-Patient Physical Therapy Visit Information Visit Information Visit Type Treatment Note Visit Start Time 15:20 Visit Stop Time 16:00 Visit Number 6 Number of BARIATRIC SURGEON Visits 0 PT-OP-B Current Condition Start: 01/01/25 17:38 Freq: Status: Active Protocol: Document 02/26/25 09:42 [facility]AK (Rec: 02/26/25 10:38 SAK [id number]) Current Condition History of Current Condition Current Complaints L ant hip pain History of Current Condition Pt has surgery for L FERNANDA ant approach 01/29. Here for pre- surgery PT. 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 She had to carry a lot of 50lb suitcases up/dwon stairs and it started bothering her and tried PT and it made it worse, so now movign on to surgery. Walks [place] park daily and does a 2nd walk sometimes later. Has a lot of stairs in house. 15 -20 stairs to enter w/rail then all the living is on that level. Walk in shower with suction grab bars. Toilet is standard height. PT-OP-C Subjective Start: 01/01/25 17:38 Freq: Status: Active Protocol: Document 03/10/25 15:21 [facility] (Rec: 03/10/25 16:10 [facility] [id number]) OP-PT Subjective Patient Comments Patient Comments Pt reports called doctor's office and left VM and called again Monday and asked them to call her again if she needs to do anything but they didn't call again. Reports LB has felt stiff PT-OP-G Mobility & Gait Start: 01/01/25 17:38 Freq: Status: Active Protocol: Document 02/26/25 09:42 [facility] (Rec: 02/26/25 10:54 SAK [id number]) OP Mobility Evaluation Transfers Sit to Stand cues for hip hinge, gluteal activation OP Gait Assessment Gait Gait Assistance Required: Independent Able to Maintain Weight Bearing Status Yes During Gait Assistive Devices Assistive Device None,Straight Cane Orthotic/Prosthetic Devices or Brace: No Comments Gait Comments lack of arm swing right and hip rotation left Stair Climbing Evaluation Evaluation Level of Assist On Stairs Standby Assistance Devices Stair Climbing Assistive Devices Right Railing Technique/Endurance Stair Climbing Direction Ascend and Descend Stair Climbing Technique Step Over Step Comments Stair Climbing Comments 5 4 stairs x 2 alternating 4 6 stairs x 2 alternating cues for gluteal activation wesley PT-OP-Q Treatments Start: 01/01/25 17:38 Freq: Status: Active Protocol: Document 03/10/25 15:21 [facility] (Rec: 03/10/25 16:10 [facility] [id number]) Therapeutic Exercises Supine Exercises LTR Side bilateral Reps/Minutes 10 Comments cues core bridge Supine Exercise Name partial range-cues to not go further than gentle stretch Side bilateral Reps/Minutes 3x Comments segmental lift and comofrtable range cues stretch Supine Exercise Name 1.R KTC w/LLE ext for hip flexor stretch 2. L piriformis knee 3. SKTC Equipment Used towel for #2&3 Reps/Minutes 30 sec ea Comments BLEs on bed Manual Therapy Treatment Consent Patient gave verbal consent for manual Yes treatment Soft Tissue Mobilization glutes Body Location L glute med and piriformis Mobilization Type Rolling,Sustained Pressure Intensity/Depth Moderate Body Position Sidelying Comments w/sciatic n glide hip flexor Body Location L proximal psoas and iliacus Mobilization Type Sustained Pressure Intensity/Depth Moderate Body Position Hooklying Comments w/gentle AAROM hip flex Joint Mobilizations lumbar Comments L5-S1,L4-5 distraction w/ pelvic dep sacrum Comments caudal L s/l coccyx Body Position Sidelying Comments transverse R w/sciatic n glide innominate Comments L add c/r s/l PT-OP-R Modalities Start: 01/01/25 17:38 Freq: Status: Active Protocol: Document 02/26/25 09:42 [facility] (Rec: 02/26/25 10:50 [facility]AK [id number]) Hot Pack/Cold Pack Treatment Cold Pack Location left hip Patient Position Hooklying Patient Tolerance Good PT-OP-T Assessment and Plan Start: 01/01/25 17:38 Freq: Status: Active Protocol: Document 03/10/25 15:21 [facility] (Rec: 03/10/25 16:10 [facility] [id number]) Physical Therapy Assessment Goals Three Impairment decreased scar mobility Short Term Goal (STG) Initiate scar massage when approved by physician STG Duration 03/27/25 Top Lift Compressor Goal (LTG) Improve surgical scar mobility to WNL for improved left hip function LTG Duration 04/27/25 Two Impairment left hip pain and stiffness with flexion, hip wknss Short Term Goal (STG) Patient will be instrsucted in progressive, individualized HEP for purposes of left hip ROM and strengthening STG Duration 03/27/25 Top Lift Compressor Goal (LTG) Patient will be independnet and compliant with HEP and demonstrate hip flexion ROM WNL without pain and improve strength left hip to at least 4+/5 all motions LTG Duration 04/27/25 One Impairment Gait dysfunction; step-to pattern, no incline Short Term Goal (STG) Patient will be able to ascend and descend her stairs at home (reports thinks 8 height ) without difficulty or increase in pain. STG Duration 03/27/25 Top Lift Compressor Goal (LTG) Patient will be able to resume taking usual walks including incline without an increase in pain LTG Duration 04/27/25 Assessment Summary Assessment Pt did well with min cues w/ exercises and questions answered re: exercises. She had improved pelvic alignment after manual. Physical Therapy Plan Frequency and Duration Frequency of Treatment 1x/Week Duration of treatment (weeks) 8 Plan of Care Start Date 02/26/25 Plan of Care End Date 04/28/25 Next Visit Focus/Plan Next Note Type Treatment Note Next Visit Plan work on pelvic alignment and cues for core and hip mobility
--- NOTE | 2025-03-19 09:03 | PT.OTN ---
Current Diagnoses Unilateral primary osteoarthritis, left hip (03/19/25) Physical Therapy Treatment Note PT-OP-A Visit Information Start: 01/01/25 17:38 Freq: Status: Active Protocol: Document 03/19/25 08:19 [facility] (Rec: 03/19/25 09:03 [facility] [id number]) Out-Patient Physical Therapy Visit Information Visit Information Visit Type Progress Note Visit Start Time 08:18 Visit Stop Time 08:58 Visit Number 7 Number of INTERIOR ASSEMBLIES INSTALLER Visits 0 PT-OP-B Current Condition Start: 01/01/25 17:38 Freq: Status: Active Protocol: Document 02/26/25 09:42 [facility] (Rec: 02/26/25 10:38 [facility] [id number]) Current Condition History of Current Condition Current Complaints L ant hip pain History of Current Condition Pt has surgery for L FERNANDA ant approach 01/29. Here for pre- surgery PT. 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 She had to carry a lot of 50lb suitcases up/dwon stairs and it started bothering her and tried PT and it made it worse, so now movign on to surgery. Walks [place] park daily and does a 2nd walk sometimes later. Has a lot of stairs in house. 15 -20 stairs to enter w/rail then all the living is on that level. Walk in shower with suction grab bars. Toilet is standard height. PT-OP-C Subjective Start: 01/01/25 17:38 Freq: Status: Active Protocol: Document 03/19/25 08:19 [facility] (Rec: 03/19/25 09:03 [facility] [id number]) OP-PT Subjective Patient Comments Patient Comments Had doppler and was neg. Can put on socks now and cross legs. Walked 4 miles. PT-OP-G Mobility & Gait Start: 01/01/25 17:38 Freq: Status: Active Protocol: Document 02/26/25 09:42 [facility] (Rec: 02/26/25 10:54 [facility] [id number]) OP Mobility Evaluation Transfers Sit to Stand cues for hip hinge, gluteal activation OP Gait Assessment Gait Gait Assistance Required: Independent Able to Maintain Weight Bearing Status Yes During Gait Assistive Devices Assistive Device None,Straight Cane Orthotic/Prosthetic Devices or Brace: No Comments Gait Comments lack of arm swing right and hip rotation left Stair Climbing Evaluation Evaluation Level of Assist On Stairs Standby Assistance Devices Stair Climbing Assistive Devices Right Railing Technique/Endurance Stair Climbing Direction Ascend and Descend Stair Climbing Technique Step Over Step Comments Stair Climbing Comments 5 4 stairs x 2 alternating 4 6 stairs x 2 alternating cues for gluteal activation wesley PT-OP-M Strength Start: 01/01/25 17:38 Freq: Status: Active Protocol: Document 03/19/25 08:19 [facility] (Rec: 03/19/25 09:03 [facility] [id number]) Hip Strength Hip Manual Muscle Testing Right Flexion (L2) 4 Good Abduction 4+ Good+ External Rotation 4+ Good+ Internal Rotation 4+ Good+ Left Flexion (L2) 4- Good- Abduction 4 Good External Rotation 3+ Fair+ Internal Rotation 4+ Good+ Knee Strength Knee Manual Muscle Testing Right Flexion (S2) 5 Normal Extension (L3) 5 Normal Left Flexion (S2) 5 Normal Extension (L3) 5 Normal Ankle/Foot Strength Ankle and Foot Manual Muscle Testing Right Dorsiflexion (L4) 5 Normal Plantarflexion (S1) 5 Normal Comments seated B Left Dorsiflexion (L4) 5 Normal Plantarflexion (S1) 5 Normal PT-OP-Q Treatments Start: 01/01/25 17:38 Freq: Status: Active Protocol: Document 03/19/25 08:19 [facility] (Rec: 03/19/25 09:03 [facility] [id number]) Therapeutic Exercises Supine Exercises supine clam Supine Exercise Name gentle stretch Side left Reps/Minutes 30 sec x2 Sidelying Exercises clamshell Side left Reps/Minutes 10 Manual Therapy Treatment Consent Patient gave verbal consent for manual Yes treatment Soft Tissue Mobilization adductors Body Location L wER Mobilization Type Rolling Intensity/Depth Moderate Body Position Hooklying scar Mobilization Type Myofascial Release,Rolling Intensity/Depth Superficial Body Position Supine PT-OP-R Modalities Start: 01/01/25 17:38 Freq: Status: Active Protocol: Document 02/26/25 09:42 [facility] (Rec: 02/26/25 10:50 [facility] [id number]) Hot Pack/Cold Pack Treatment Cold Pack Location left hip Patient Position Hooklying Patient Tolerance Good PT-OP-T Assessment and Plan Start: 01/01/25 17:38 Freq: Status: Active Protocol: Document 03/19/25 08:19 [facility] (Rec: 03/19/25 09:03 [facility] [id number]) Physical Therapy Assessment Goals Three Impairment decreased scar mobility Short Term Goal (STG) Initiate scar massage when approved by physician STG Duration achieved 03/19 Life Enrichment Director Goal (LTG) Improve surgical scar mobility to WNL for improved left hip function LTG Duration 04/27/25 Two Impairment left hip pain and stiffness with flexion, hip wknss Short Term Goal (STG) Patient will be instrsucted in progressive, individualized HEP for purposes of left hip ROM and strengthening STG Duration achieved 03/19 Life Enrichment Director Goal (LTG) Patient will be independnet and compliant with HEP and demonstrate hip flexion ROM WNL without pain and improve strength left hip to at least 4+/5 all motions 03/19-improving LTG Duration 04/27/25 One Impairment Gait dysfunction; step-to pattern, no incline Short Term Goal (STG) Patient will be able to ascend and descend her stairs at home (reports thinks 8 height ) without difficulty or increase in pain. STG Duration achieved 03/19 Life Enrichment Director Goal (LTG) Patient will be able to resume taking usual walks including incline without an increase in pain LTG Duration achieved 03/19 Assessment Summary Assessment Pt making excellent progress towards goals and is advancing w/her mobility overall. Verbalized understanding for exercises and self scar work Physical Therapy Plan Frequency and Duration Frequency of Treatment 1x/Week Duration of treatment (weeks) 8 Plan of Care Start Date 02/26/25 Plan of Care End Date 04/28/25 Next Visit Focus/Plan Next Note Type Progress Note Next Visit Plan check in on pt progress
--- NOTE | 2025-05-12 16:10 | PT.OTN ---
Current Diagnoses Unilateral primary osteoarthritis, left hip (05/12/25) Physical Therapy Treatment Note PT-OP-A Visit Information Start: 01/01/25 17:38 Freq: Status: Active Protocol: Document 05/12/25 14:23 [facility] (Rec: 05/12/25 16:10 [facility] [id number]) Out-Patient Physical Therapy Visit Information Visit Information Visit Type Discharge Summary Visit Start Time 14:37 Visit Stop Time 15:17 Visit Number 8 Number of BEAN SPROUT GROWER Visits 0 PT-OP-B Current Condition Start: 01/01/25 17:38 Freq: Status: Active Protocol: Document 02/26/25 09:42 [facility] (Rec: 02/26/25 10:38 [facility] [id number]) Current Condition History of Current Condition Current Complaints L ant hip pain History of Current Pt has surgery for L FERNANDA ant approach 01/29. Here for pre Condition -surgery PT. 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 She had to carry a lot of 50lb suitcases up/dwon stairs and it started bothering her and tried PT and it made it worse, so now movign on to surgery. Walks [place] park daily and does a 2nd walk sometimes later. Has a lot of stairs in house. 15 -20 stairs to enter w/rail then all the living is on that level. Walk in shower with suction grab bars. Toilet is standard height. PT-OP-C Subjective Start: 01/01/25 17:38 Freq: Status: Active Protocol: Document 05/12/25 14:23 [facility] (Rec: 05/12/25 16:10 [facility] [id number]) OP-PT Subjective Patient Comments Patient Comments reports she has a little difficulty lifting leg to get into lg jeep. walking 5.5 miles w/hills and back to all normal activities. some ache when lift into flex. butterfly stretch is still hard in buttocks Patient Reported Improving Progress PT-OP-G Mobility & Gait Start: 01/01/25 17:38 Freq: Status: Active Protocol: Document 02/26/25 09:42 [facility] (Rec: 02/26/25 10:54 [facility] [id number]) OP Mobility Evaluation Transfers Sit to Stand cues for hip hinge, gluteal activation OP Gait Assessment Gait Gait Assistance Independent Required: Able to Maintain Yes Weight Bearing Status During Gait Assistive Devices Assistive Device None,Straight Cane Orthotic/Prosthetic No Devices or Brace: Comments Gait Comments lack of arm swing right and hip rotation left Stair Climbing Evaluation Evaluation Level of Assist On Standby Assistance Stairs Devices Stair Climbing Right Railing Assistive Devices Technique/Endurance Stair Climbing Ascend and Descend Direction Stair Climbing Step Over Step Technique Comments Stair Climbing 5 4 stairs x 2 alternating Comments 4 6 stairs x 2 alternating cues for gluteal activation wesley PT-OP-M Strength Start: 01/01/25 17:38 Freq: Status: Active Protocol: Document 05/12/25 14:23 [facility] (Rec: 05/12/25 16:10 [facility] [id number]) Hip Strength Hip Manual Muscle Testing Right Flexion (L2) 4+ Good+ Extension (S1) 4 Good Abduction 5 Normal Adduction 5 Normal External Rotation 5 Normal Internal Rotation 5 Normal Left Flexion (L2) 4 Good Extension (S1) 4- Good- Abduction 4+ Good+ Adduction 4+ Good+ External Rotation 4 Good Internal Rotation 5 Normal Knee Strength Knee Manual Muscle Testing Right Flexion (S2) 5 Normal Extension (L3) 5 Normal Left Flexion (S2) 5 Normal Extension (L3) 5 Normal PT-OP-Q Treatments Start: 01/01/25 17:38 Freq: Status: Active Protocol: Document 05/12/25 14:23 [facility] (Rec: 05/12/25 16:10 [facility] [id number]) Therapeutic Exercises Supine Exercises core Supine Exercise Name DL isometric flex Side bilateral Reps/Minutes 30 sec bridge Supine Exercise Name w/march Side bilateral Reps/Minutes 2x8 Comments cues for neutral spine and segmental lift stretch Supine Exercise Name 1. L SKTC 2. piriformis L 3.butterfly Reps/Minutes 1 & 2: 30 sec ea 3. 30sec x2 Sidelying Exercises clamshell Side left Equipment Used L2 Reps/Minutes 8 Sitting Exercises sit stand Sitting Exercise taps to chair Name Reps/Minutes 2 Standing Exercises march Side bilateral Reps/Minutes 5 stretches Standing Exercise hip flexor Name Side left Reps/Minutes 2x30 sec Manual Therapy Treatment Consent Patient gave verbal Yes consent for manual treatment Soft Tissue Mobilization adductors Body Location L wER Mobilization Type Rolling Intensity/Depth Moderate Body Position Hooklying Comments cupping and manual scar Mobilization Type Myofascial Release,Rolling Intensity/Depth Superficial Body Position Supine glutes Body Location L glute med and piriformis, max, ITB, TFL Mobilization Type Rolling,Sustained Pressure Intensity/Depth Moderate Body Position Sidelying Comments manual and cupping w/clamshell Joint Mobilizations pubic bone Comments L inf c/r w/flex innominate Comments L ER c/r and flex c/r hip Comments free the ball ER c/r supine PT-OP-R Modalities Start: 01/01/25 17:38 Freq: Status: Active Protocol: Document 02/26/25 09:42 [facility] (Rec: 02/26/25 10:50 [facility] [id number]) Hot Pack/Cold Pack Treatment Cold Pack Location left hip Patient Position Hooklying Patient Tolerance Good PT-OP-T Assessment and Plan Start: 01/01/25 17:38 Freq: Status: Active Protocol: Document 05/12/25 14:23 [facility] (Rec: 05/12/25 16:10 [facility] [id number]) Physical Therapy Assessment Goals Three Impairment decreased scar mobility Short Term Goal (STG Initiate scar massage when approved by physician ) STG Duration achieved 03/19 Graduate Assistant Goal (LTG) Improve surgical scar mobility to WNL for improved left hip function 05/12-still some restriction leading to dec hip flex LTG Duration 06/23 Two Impairment left hip pain and stiffness with flexion, hip wknss Short Term Goal (STG Patient will be instrsucted in progressive, ) individualized HEP for purposes of left hip ROM and strengthening STG Duration achieved 03/19 Retirement Goal (LTG) Patient will be independnet and compliant with HEP and demonstrate hip flexion ROM WNL without pain and improve strength left hip to at least 4+/5 all motions 03/19-improving 05/12-improving LTG Duration 06/23 One Impairment Gait dysfunction; step-to pattern, no incline Short Term Goal (STG Patient will be able to ascend and descend her stairs ) at home (reports thinks 8 height) without difficulty or increase in pain. STG Duration achieved 03/19 Graduate Assistant Goal (LTG) Patient will be able to resume taking usual walks including incline without an increase in pain LTG Duration achieved 03/19 1 Impairment . Retirement Goal (LTG) Pt will be able to do big step into jeep w/o inc pain in hip/limitation LTG Duration 06/23 Assessment Summary Assessment Pt is making excellent progress w/PT with much improved strength, ROM and functional activity. She is still limited in hip flex ability especially for large step ups especially for getting into their jeep. Pain ant and in glute w/flex and ER ROM that does improve w/ manual. Cont PT to improve function and dec instances of pain. Physical Therapy Plan Frequency and Duration Frequency of 1x/Week Treatment Duration of 6 treatment (weeks) Plan of Care Start 05/12/25 Date Plan of Care End 06/23/25 Date Therapeutic Interventions Therapeutic Balance Training,Gait Training,Home Exercise Program, Interventions Joint Mobilizations,Manual Therapy,Neuromuscular Re- education,Patient/Caregiver Education,Self-Care/Home Management,Soft Tissue Mobilization,Taping,Therapeutic Activities,Therapeutic Exercises Modalities Cold Pack/Ice Massage,Electric Stimulation,Hot Packs Next Visit Focus/Plan Next Note Type Treatment Note Next Visit Plan PNF for hip flex, innominate mobility, cupping of hip/ LE, hp mobs, core w/hip flexion strength
--- NOTE | 2025-05-12 16:10 | PT.OPPOC ---
Addendum entered and electronically signed by Tonia Trevizo, PT 05/12/25 17:55: POC sent to surgeon Original Note: Physical, Occupational & Speech Therapy At [facility] Current Diagnoses Unilateral primary osteoarthritis, left hip (05/12/25) Visit Care Team Role Provider Type Georgina Vincent DO Primary Care Provider Physician Referring Provider Specialty: Family Practice Address: [address] [place] [address], [facility] [address], [address] Email: [email or web address] Geovanni Daley MD Attending Provider Non-Staff Specialty: Medical Address: [address] [place] [address], [id number] Email: Plan Of Care PT-OP-B Current Condition Start: 01/01/25 17:38 Freq: Status: Active Protocol: Document 02/26/25 09:42 [facility] (Rec: 02/26/25 10:38 [facility] [id number]) Current Condition History of Current Condition Current Complaints L ant hip pain History of Current Pt has surgery for L FERNANDA ant approach 01/29. Here for pre Condition -surgery PT. 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 She had to carry a lot of 50lb suitcases up/dwon stairs and it started bothering her and tried PT and it made it worse, so now movign on to surgery. Walks [place] park daily and does a 2nd walk sometimes later. Has a lot of stairs in house. 15 -20 stairs to enter w/rail then all the living is on that level. Walk in shower with suction grab bars. Toilet is standard height. PT-OP-T Assessment and Plan Start: 01/01/25 17:38 Freq: Status: Active Protocol: Document 05/12/25 14:23 [facility] (Rec: 05/12/25 16:10 [facility] [id number]) Physical Therapy Assessment Goals Three Impairment decreased scar mobility Short Term Goal (STG Initiate scar massage when approved by physician ) STG Duration achieved 03/19 Long-Term Goal (LTG) Improve surgical scar mobility to WNL for improved left hip function 05/12-still some restriction leading to dec hip flex LTG Duration 06/23 Two Impairment left hip pain and stiffness with flexion, hip wknss Short Term Goal (STG Patient will be instrsucted in progressive, ) individualized HEP for purposes of left hip ROM and strengthening STG Duration achieved 03/19 Automatic Blocker Goal (LTG) Patient will be independnet and compliant with HEP and demonstrate hip flexion ROM WNL without pain and improve strength left hip to at least 4+/5 all motions 03/19-improving 05/12-improving LTG Duration 06/23 One Impairment Gait dysfunction; step-to pattern, no incline Short Term Goal (STG Patient will be able to ascend and descend her stairs ) at home (reports thinks 8 height) without difficulty or increase in pain. STG Duration achieved 03/19 Long-Term Goal (LTG) Patient will be able to resume taking usual walks including incline without an increase in pain LTG Duration achieved 03/19 1 Impairment . Long-Term Goal (LTG) Pt will be able to do big step into jeep w/o inc pain in hip/limitation LTG Duration 06/23 Assessment Summary Assessment Pt is making excellent progress w/PT with much improved strength, ROM and functional activity. She is still limited in hip flex ability especially for large step ups especially for getting into their jeep. Pain ant and in glute w/flex and ER ROM that does improve w/ manual. Cont PT to improve function and dec instances of pain. Physical Therapy Plan Frequency and Duration Frequency of 1x/Week Treatment Duration of 6 treatment (weeks) Plan of Care Start 05/12/25 Date Plan of Care End 06/23/25 Date Therapeutic Interventions Therapeutic Balance Training,Gait Training,Home Exercise Program, Interventions Joint Mobilizations,Manual Therapy,Neuromuscular Re- education,Patient/Caregiver Education,Self-Care/Home Management,Soft Tissue Mobilization,Taping,Therapeutic Activities,Therapeutic Exercises Modalities Cold Pack/Ice Massage,Electric Stimulation,Hot Packs Next Visit Focus/Plan Next Note Type Treatment Note Next Visit Plan PNF for hip flex, innominate mobility, cupping of hip/ LE, hp mobs, core w/hip flexion strength Plan of Care Dates Plan of Care Start Date 05/12/25 Plan of Care End Date 06/23/25 Electronically Signed by: Tonia Trevizo, PT 05/12/25 [id number] If you are in agreement with this Plan of Care, please return a signed and dated copy. I have reviewed this Plan of Care and certify that the skilled therapy services above are required to meet the patient?s needs. Physician Signature Date Printed Name and Credentials Clinical Instructor Signature Printed Name and Credentials
--- NOTE | 2025-05-29 11:02 | PT.OTN ---
Current Diagnoses Unilateral primary osteoarthritis, left hip (05/29/25) Physical Therapy Treatment Note PT-OP-A Visit Information Start: 01/01/25 17:38 Freq: Status: Active Protocol: Document 05/29/25 08:18 [facility] (Rec: 05/29/25 11:02 [facility] [id number]) Out-Patient Physical Therapy Visit Information Visit Information Visit Type Treatment Note Visit Start Time 08:22 Visit Stop Time 09:02 Visit Number 9 Number of ELEMENTARY SCHOOL COUNSELOR Visits 0 PT-OP-B Current Condition Start: 01/01/25 17:38 Freq: Status: Active Protocol: Document 02/26/25 09:42 SAK (Rec: 02/26/25 10:38 SAK [id number]) Current Condition History of Current Condition Current Complaints L ant hip pain History of Current Pt has surgery for L FERNANDA ant approach 01/29. Here for pre Condition -surgery PT. 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 She had to carry a lot of 50lb suitcases up/dwon stairs and it started bothering her and tried PT and it made it worse, so now movign on to surgery. Walks [place] park daily and does a 2nd walk sometimes later. Has a lot of stairs in house. 15 -20 stairs to enter w/rail then all the living is on that level. Walk in shower with suction grab bars. Toilet is standard height. PT-OP-C Subjective Start: 01/01/25 17:38 Freq: Status: Active Protocol: Document 05/29/25 08:18 [facility] (Rec: 05/29/25 11:02 [facility] [id number]) OP-PT Subjective Patient Comments Patient Comments pt reports last session really helped and she feels like it was easeir to get into the je PT-OP-G Mobility & Gait Start: 01/01/25 17:38 Freq: Status: Active Protocol: Document 02/26/25 09:42 SAK (Rec: 02/26/25 10:54 SAK [id number]) OP Mobility Evaluation Transfers Sit to Stand cues for hip hinge, gluteal activation OP Gait Assessment Gait Gait Assistance Independent Required: Able to Maintain Yes Weight Bearing Status During Gait Assistive Devices Assistive Device None,Straight Cane Orthotic/Prosthetic No Devices or Brace: Comments Gait Comments lack of arm swing right and hip rotation left Stair Climbing Evaluation Evaluation Level of Assist On Standby Assistance Stairs Devices Stair Climbing Right Railing Assistive Devices Technique/Endurance Stair Climbing Ascend and Descend Direction Stair Climbing Step Over Step Technique Comments Stair Climbing 5 4 stairs x 2 alternating Comments 4 6 stairs x 2 alternating cues for gluteal activation wesley PT-OP-M Strength Start: 01/01/25 17:38 Freq: Status: Active Protocol: Document 05/12/25 14:23 [facility] (Rec: 05/12/25 16:10 [facility] [id number]) Hip Strength Hip Manual Muscle Testing Right Flexion (L2) 4+ Good+ Extension (S1) 4 Good Abduction 5 Normal Adduction 5 Normal External Rotation 5 Normal Internal Rotation 5 Normal Left Flexion (L2) 4 Good Extension (S1) 4- Good- Abduction 4+ Good+ Adduction 4+ Good+ External Rotation 4 Good Internal Rotation 5 Normal Knee Strength Knee Manual Muscle Testing Right Flexion (S2) 5 Normal Extension (L3) 5 Normal Left Flexion (S2) 5 Normal Extension (L3) 5 Normal PT-OP-Q Treatments Start: 01/01/25 17:38 Freq: Status: Active Protocol: Document 05/29/25 08:18 [facility] (Rec: 05/29/25 11:02 [facility] [id number]) Therapeutic Exercises Supine Exercises stretch Supine Exercise Name 1. piriformis 2. figure 4 Side left Reps/Minutes 60 sec ea Sitting Exercises roll out Sitting Exercise w/rolling pin to add, lat hip and glutes Name Side left Standing Exercises march Side bilateral Reps/Minutes 5 stretches Standing Exercise hip flexor Name Side left Reps/Minutes 60 sec Comments cues no back ext Manual Therapy Treatment Consent Patient gave verbal Yes consent for manual treatment Soft Tissue Mobilization HS Body Location L Mobilization Type Rolling Intensity/Depth Moderate Comments w/hip flex adductors Body Location L wER Mobilization Type Rolling Intensity/Depth Moderate Body Position Hooklying scar Mobilization Type Myofascial Release,Rolling Body Position Supine Comments manual and cupping glutes Body Location L glute med and piriformis, max, ITB, TFL Mobilization Type Rolling,Sustained Pressure Intensity/Depth Moderate Body Position Hooklying Comments lat w/ER Joint Mobilizations sacrum Comments UPA L w/hip IR/ER coccyx Body Position Prone Comments transverse L w/L IR/ER innominate Comments ER prone c/r L PT-OP-R Modalities Start: 01/01/25 17:38 Freq: Status: Active Protocol: Document 02/26/25 09:42 SAK (Rec: 02/26/25 10:50 SAK [id number]) Hot Pack/Cold Pack Treatment Cold Pack Location left hip Patient Position Hooklying Patient Tolerance Good PT-OP-T Assessment and Plan Start: 01/01/25 17:38 Freq: Status: Active Protocol: Document 05/29/25 08:18 [facility] (Rec: 05/29/25 11:02 [facility] [id number]) Physical Therapy Assessment Goals Three Impairment decreased scar mobility Short Term Goal (STG Initiate scar massage when approved by physician ) STG Duration achieved 03/19 [facility] Goal (LTG) Improve surgical scar mobility to WNL for improved left hip function 05/12-still some restriction leading to dec hip flex 05/29-still restricted causing pain w/hip flex LTG Duration 07/24 Two Impairment left hip pain and stiffness with flexion, hip wknss Short Term Goal (STG Patient will be instrsucted in progressive, ) individualized HEP for purposes of left hip ROM and strengthening STG Duration achieved 03/19 [facility] Goal (LTG) Patient will be independent and compliant with HEP and demonstrate hip flexion ROM WNL without pain and improve strength left hip to at least 4+/5 all motions 03/19-improving 05/12-improving 05/29-improving tolerance to HEPE LTG Duration 07/24 One Impairment Gait dysfunction; step-to pattern, no incline Short Term Goal (STG Patient will be able to ascend and descend her stairs ) at home (reports thinks 8 height) without difficulty or increase in pain. STG Duration achieved 03/19 [facility] Goal (LTG) Patient will be able to resume taking usual walks including incline without an increase in pain LTG Duration achieved 03/19 1 Impairment . Short Term Goal (STG Pt will be able to do big step into jeep w/o inc pain ) in hip/limitation 05/29-feels easier STG Duration 06/23 Chain Hoist Operator Goal (LTG) Pt will be able to sit srinivasa cross apple sauce LTG Duration 07/24 Assessment Summary Assessment Pt making good progress w/PT and is having greater ease with movement patterns. Pt would benefit from cont PT to improve flexibility of hip and mobility and strength . Pt had improved hip flex and ER and was able to sit srinivasa cross w/o slouching but does still have pain after session but had more ER and was able to rest into position better. Physical Therapy Plan Frequency and Duration Frequency of 1x/wk to every other Treatment Duration of 8 treatment (weeks) Plan of Care Start 05/29/25 Date Plan of Care End 07/24/25 Date Therapeutic Interventions Therapeutic Balance Training,Gait Training,Home Exercise Program, Interventions Joint Mobilizations,Manual Therapy,Neuromuscular Re- education,Patient/Caregiver Education,Self-Care/Home Management,Soft Tissue Mobilization,Taping,Therapeutic Activities,Therapeutic Exercises Modalities Cold Pack/Ice Massage,Electric Stimulation,Hot Packs Next Visit Focus/Plan Next Note Type Treatment Note Next Visit Plan PNF for hip flex, innominate mobility, cupping of hip/ LE, hp mobs, core w/hip flexion strength
--- NOTE | 2025-05-29 11:03 | PT.OPPOC ---
Addendum entered and electronically signed by Tonia Trevizo, PT 05/29/25 11:04: POC faxed Original Note: Physical, Occupational & Speech Therapy At [facility] Current Diagnoses Unilateral primary osteoarthritis, left hip (05/29/25) Visit Care Team Role Provider Type Georgina Vincent DO Primary Care Provider Physician Referring Provider Specialty: Family Practice Address: [address] [place] [address], [facility] [address], [place], [address] Email: [email or web address] Geovanni Daley MD Attending Provider Non-Staff Specialty: Medical Address: [address] [place] [address], [id number] Email: Plan Of Care PT-OP-B Current Condition Start: 01/01/25 17:38 Freq: Status: Active Protocol: Document 02/26/25 09:42 SAK (Rec: 02/26/25 10:38 SAK [id number]) Current Condition History of Current Condition Current Complaints L ant hip pain History of Current Pt has surgery for L FERNANDA ant approach 01/29. Here for pre Condition -surgery PT. 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 She had to carry a lot of 50lb suitcases up/dwon stairs and it started bothering her and tried PT and it made it worse, so now movign on to surgery. Walks [place] park daily and does a 2nd walk sometimes later. Has a lot of stairs in house. 15 -20 stairs to enter w/rail then all the living is on that level. Walk in shower with suction grab bars. Toilet is standard height. PT-OP-T Assessment and Plan Start: 01/01/25 17:38 Freq: Status: Active Protocol: Document 05/29/25 08:18 [facility] (Rec: 05/29/25 11:02 [facility] [id number]) Physical Therapy Assessment Goals Three Impairment decreased scar mobility Short Term Goal (STG Initiate scar massage when approved by physician ) STG Duration achieved 03/19 Longterm Goal (LTG) Improve surgical scar mobility to WNL for improved left hip function 05/12-still some restriction leading to dec hip flex 05/29-still restricted causing pain w/hip flex LTG Duration 07/24 Two Impairment left hip pain and stiffness with flexion, hip wknss Short Term Goal (STG Patient will be instrsucted in progressive, ) individualized HEP for purposes of left hip ROM and strengthening STG Duration achieved 03/19 Longterm Goal (LTG) Patient will be independent and compliant with HEP and demonstrate hip flexion ROM WNL without pain and improve strength left hip to at least 4+/5 all motions 03/19-improving 05/12-improving 05/29-improving tolerance to HEPE LTG Duration 07/24 One Impairment Gait dysfunction; step-to pattern, no incline Short Term Goal (STG Patient will be able to ascend and descend her stairs ) at home (reports thinks 8 height) without difficulty or increase in pain. STG Duration achieved 03/19 Retail Operations Specialist Goal (LTG) Patient will be able to resume taking usual walks including incline without an increase in pain LTG Duration achieved 03/19 1 Impairment . Short Term Goal (STG Pt will be able to do big step into jeep w/o inc pain ) in hip/limitation 05/29-feels easier STG Duration 06/23 Retail Operations Specialist Goal (LTG) Pt will be able to sit srinivasa cross apple sauce LTG Duration 07/24 Assessment Summary Assessment Pt making good progress w/PT and is having greater ease with movement patterns. Pt would benefit from cont PT to improve flexibility of hip and mobility and strength . Pt had improved hip flex and ER and was able to sit srinivasa cross w/o slouching but does still have pain after session but had more ER and was able to rest into position better. Physical Therapy Plan Frequency and Duration Frequency of 1x/wk to every other Treatment Duration of 8 treatment (weeks) Plan of Care Start 05/29/25 Date Plan of Care End 07/24/25 Date Therapeutic Interventions Therapeutic Balance Training,Gait Training,Home Exercise Program, Interventions Joint Mobilizations,Manual Therapy,Neuromuscular Re- education,Patient/Caregiver Education,Self-Care/Home Management,Soft Tissue Mobilization,Taping,Therapeutic Activities,Therapeutic Exercises Modalities Cold Pack/Ice Massage,Electric Stimulation,Hot Packs Next Visit Focus/Plan Next Note Type Treatment Note Next Visit Plan PNF for hip flex, innominate mobility, cupping of hip/ LE, hp mobs, core w/hip flexion strength Plan of Care Dates Plan of Care Start Date 05/29/25 Plan of Care End Date 07/24/25 Electronically Signed by: Tonia Trevizo, PT 05/29/25 1103 If you are in agreement with this Plan of Care, please return a signed and dated copy. I have reviewed this Plan of Care and certify that the skilled therapy services above are required to meet the patient?s needs. Physician Signature Date Printed Name and Credentials Clinical Instructor Signature Printed Name and Credentials
--- NOTE | 2025-06-16 14:36 | PT.OTN ---
Current Diagnoses Unilateral primary osteoarthritis, left hip (06/16/25) Physical Therapy Treatment Note PT-OP-A Visit Information Start: 01/01/25 17:38 Freq: Status: Active Protocol: Document 06/16/25 13:51 [facility] (Rec: 06/16/25 14:36 [facility] [id number]) Out-Patient Physical Therapy Visit Information Visit Information Visit Type Discharge Summary Visit Start Time 13:50 Visit Stop Time 14:30 Visit Number 10 Number of GARMENT SEWER HAND Visits 0 PT-OP-B Current Condition Start: 01/01/25 17:38 Freq: Status: Active Protocol: Document 02/26/25 09:42 SAK (Rec: 02/26/25 10:38 SAK [id number]) Current Condition History of Current Condition Current Complaints L ant hip pain History of Current Pt has surgery for L FERNANDA ant approach 01/29. Here for pre Condition -surgery PT. 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 She had to carry a lot of 50lb suitcases up/dwon stairs and it started bothering her and tried PT and it made it worse, so now movign on to surgery. Walks [place] park daily and does a 2nd walk sometimes later. Has a lot of stairs in house. 15 -20 stairs to enter w/rail then all the living is on that level. Walk in shower with suction grab bars. Toilet is standard height. PT-OP-C Subjective Start: 01/01/25 17:38 Freq: Status: Active Protocol: Document 06/16/25 13:51 [facility] (Rec: 06/16/25 14:36 [facility] [id number]) OP-PT Subjective Patient Comments Patient Comments pt reports almost cancelled because feeling better. walking 5 miles a day. PT-OP-G Mobility & Gait Start: 01/01/25 17:38 Freq: Status: Active Protocol: Document 02/26/25 09:42 SAK (Rec: 02/26/25 10:54 SAK [id number]) OP Mobility Evaluation Transfers Sit to Stand cues for hip hinge, gluteal activation OP Gait Assessment Gait Gait Assistance Independent Required: Able to Maintain Yes Weight Bearing Status During Gait Assistive Devices Assistive Device None,Straight Cane Orthotic/Prosthetic No Devices or Brace: Comments Gait Comments lack of arm swing right and hip rotation left Stair Climbing Evaluation Evaluation Level of Assist On Standby Assistance Stairs Devices Stair Climbing Right Railing Assistive Devices Technique/Endurance Stair Climbing Ascend and Descend Direction Stair Climbing Step Over Step Technique Comments Stair Climbing 5 4 stairs x 2 alternating Comments 4 6 stairs x 2 alternating cues for gluteal activation wesley PT-OP-M Strength Start: 01/01/25 17:38 Freq: Status: Active Protocol: Document 06/16/25 13:51 [facility] (Rec: 06/16/25 14:36 [facility] [id number]) Hip Strength Hip Manual Muscle Testing Right Flexion (L2) 4+ Good+ Extension (S1) 4 Good Abduction 5 Normal Adduction 5 Normal External Rotation 5 Normal Internal Rotation 5 Normal Left Flexion (L2) 4 Good Extension (S1) 4 Good Abduction 5 Normal Adduction 4+ Good+ External Rotation 4+ Good+ Internal Rotation 5 Normal Knee Strength Knee Manual Muscle Testing Right Flexion (S2) 5 Normal Extension (L3) 5 Normal Left Flexion (S2) 5 Normal Extension (L3) 5 Normal PT-OP-Q Treatments Start: 01/01/25 17:38 Freq: Status: Active Protocol: Document 06/16/25 13:51 [facility] (Rec: 06/16/25 14:36 [facility] [id number]) Therapeutic Exercises Supine Exercises core Supine Exercise Name DL isometric flex Side bilateral Reps/Minutes 15sec bridge Supine Exercise Name w/march Side bilateral Reps/Minutes x8 Comments cues for neutral spine and segmental lift stretch Supine Exercise Name 1. piriformis 2. figure [address] 4. SKTC Side bilateral Reps/Minutes 30 sec ea Sidelying Exercises clamshell Side left Equipment Used L2 Reps/Minutes 8 Standing Exercises SL Standing Exercise SLS Name Side bilateral Reps/Minutes 30 sec squat Side bilateral Reps/Minutes 8 clamshell Side bilateral Equipment Used L2 Reps/Minutes 8 Comments cues posture march Side bilateral Reps/Minutes 5 stretches Standing Exercise hip flexor Name Side left Reps/Minutes 30 sec Comments cues no back ext Manual Therapy Treatment Consent Patient gave verbal Yes consent for manual treatment Soft Tissue Mobilization scar Mobilization Type Myofascial Release,Rolling Body Position Supine Comments manual and cupping hip flexor Body Location L iliacus and TFL Mobilization Type Sustained Pressure Intensity/Depth Moderate Body Position Hooklying Comments w/hip ER Joint Mobilizations sacrum Comments UPA L w/hip IR/ER innominate Comments L add and ext s/l c/r; ER supine c/r PT-OP-R Modalities Start: 01/01/25 17:38 Freq: Status: Active Protocol: Document 02/26/25 09:42 SAK (Rec: 02/26/25 10:50 SAK [id number]) Hot Pack/Cold Pack Treatment Cold Pack Location left hip Patient Position Hooklying Patient Tolerance Good PT-OP-T Assessment and Plan Start: 01/01/25 17:38 Freq: Status: Active Protocol: Document 06/16/25 13:51 [facility] (Rec: 06/16/25 14:36 [facility] [id number]) Physical Therapy Assessment Goals Three Impairment decreased scar mobility Short Term Goal (STG Initiate scar massage when approved by physician ) STG Duration achieved 03/19 Agribusiness Professor Goal (LTG) Improve surgical scar mobility to WNL for improved left hip function 05/12-still some restriction leading to dec hip flex 05/29-still restricted causing pain w/hip flex LTG Duration improving pt indep w/self massage Two Impairment left hip pain and stiffness with flexion, hip wknss Short Term Goal (STG Patient will be instrsucted in progressive, ) individualized HEP for purposes of left hip ROM and strengthening STG Duration achieved 03/19 Agribusiness Professor Goal (LTG) Patient will be independent and compliant with HEP and demonstrate hip flexion ROM WNL without pain and improve strength left hip to at least 4+/5 all motions 03/19-improving 05/12-improving 05/29-improving tolerance to HEPE LTG Duration improving pt indep w/HEP to cont to advance One Impairment Gait dysfunction; step-to pattern, no incline Short Term Goal (STG Patient will be able to ascend and descend her stairs ) at home (reports thinks 8 height) without difficulty or increase in pain. STG Duration achieved 03/19 Agribusiness Professor Goal (LTG) Patient will be able to resume taking usual walks including incline without an increase in pain LTG Duration achieved 03/19 1 Impairment . Short Term Goal (STG Pt will be able to do big step into jeep w/o inc pain ) in hip/limitation 05/29-feels easier STG Duration achieved 06/16 Agribusiness Professor Goal (LTG) Pt will be able to sit srinivasa cross apple sauce LTG Duration tight but even B-achieved mostly and cont to stretch Assessment Summary Assessment Pt has made excellent progress w/PT with improved ROM, strength and functional ability. She is indep w/self massage and HEP so DC to that and cont her walks Physical Therapy Plan Discharge Physical Therapy Discharge Reasons Goals Met
== END 2025-06-17 12:52 | disposition home or self-care (01) ==
LOC: PHYS 13:45
PROVIDERS: PCP Family Medicine; Referring Provider Family Medicine; Visit Provider Orthopaedic Surgery Orthopaedic Trauma
DX: M16.12 Unilateral primary osteoarthritis, left hip (principal)
CPT/HCPCS: 97110; 97116; 97140; 97162; 97530; 97535